=== PATIENT | male | born 1985 | race Caucasian/White ===

== ENCOUNTER 2016-11-16 19:06 | Emergency (ER) | payer MEDICAID ==
[~2016-11-16] VITALS: Ht 182.9 cm; Wt 91.5 kg
[~2016-11-16 19:06] MED LIST: HYDR-906 PO; IBUP-1542 PO
[2016-11-16 19:40] VITALS: Ht 182.9 cm; Wt 91.5 kg
[2016-11-16] MEDS ORDERED: CIPR500T4 PO (19:52)
--- NOTE | 2016-11-16 19:57 | ERD ---
ER Documentation Chief Complaint Date/Time DATE: 11/16/16 TIME: 19:53 Chief Complaint Exposure to Meningitis HPI 30-year-old male patient with no significant past medical history presents to the ED being exposed to a patient that was diagnosed with meningitis today here in the ER. Reports that he is a family friend of the patient. The patient is being admitted for meningitis. Patient is asymptomatic and is here for 1 dose of ciprofloxacin for prophylactic exposure. Denies any fever, chills, headache , neck stiffness, neck pain, seizures, nausea, vomiting, chest pain, shortness of breath. ROS All systems reviewed and are negative except as per history of present illness. Medications Home Meds Active Scripts Ciprofloxacin Hcl* (Ciprofloxacin Hcl*) 500 Mg Tablet, 500 MG PO ONCE Y for now for 1 Day, #1 TAB Prov:MAIN HENRY PA-C 11/16/16 Hydrocodone/Acetaminophen (Charl[place] 5-325 Tablet) 1 Each Tablet, 1 TAB PO QHS Y for PAIN for 10 Days, #10 TAB 0 Refills Prov:YONG PEDROZA PA-C 04/25/16 Ibuprofen* (Motrin*) 600 Mg Tab, 600 MG PO Q8 for 10 Days, #30 TAB 0 Refills Prov:YONG PEDROZA PA-C 04/25/16 Allergies Allergies: Coded Allergies: No Known Allergy (Unverified , 04/25/16) PMhx/Soc History of Surgery: No Anesthesia Reaction: No Hx Neurological Disorder: No Hx Respiratory Disorders: No Hx Cardiac Disorders: No Hx Psychiatric Problems: No Hx Miscellaneous Medical Probl: No Hx Alcohol Use: No Hx Substance Use: No Hx Tobacco Use: No Physical Exam Vitals Vital Signs Date Time Temp Pulse Resp B/P Pulse Ox O2 Delivery O2 Flow Rate FiO2 11/16/16 19:40 98.0 96 18 132/79 97 Physical Exam Const: [id number], well-nourished. In no acute distress. Head: Atraumatic, normocephalic Eyes: Normal Conjunctiva without injection. No purulent discharge. PERRLA. EOMI ENT: Normal external ear. Ear canal without erythema. Tympanic membrane pearly gr without effusion or bulging. Nasal canal clear with normal turbinates. Moist oropharynx without tonsillar exudates. Non-erythematous pharynx. Uvula midline. No drooling. No trismus. Neck: No cervical midline tenderness. Full range of motion. No meningismus. No cervical lymphadenopathy. No JVD. Resp: Clear to auscultation bilaterally. No wheezing, rhonchi, rales, or crackles. No accessory muscle use. No retractions. Cardio: Regular rate and rhythm. No murmurs, rubs or gallops. Skin: Normal skin turgor. No petechiae or rashes Ext: No cyanosis, or edema. Distal pulses intact bilaterally. Neur: Awake and alert. Normal gait. Normal coordination. Cranial Nerves II- VII intact. Normal finger to nose. Muscle strength 5/5. Sensation intact. Psych: Normal Mood and Affect Procedures/MDM This is a 30-year-old male patient with no significant past medical history presents to the ED and is here for a prescription for Ciprofloxacin for prophylaxis treatment to meningitis. Patient is afebrile and nontoxic- appearing. Patient has normal vital signs. Patient is asymptomatic. Patient will be given a prescription for ciprofloxacin 500 mg for outpatient management. Low suspicion for acute meningitis, intracranial, acute neurological deficits, pneumonia, acute atypical LA, meningococcemia or other emergent conditions. Discharge medications: Ciprofloxacin Follow up with primary care physician in 1-2 days. Instructed patient to return to the ED sooner for any worsening symptoms. Patient's questions were answered. Patient understood and agreed with discharge plan. Patient discharged stable. Departure Diagnosis: Primary Impression: Exposure to meningitis Condition: Stable Patient Instructions: Meningitis Referrals: [facility] YOU HAVE RECEIVED A MEDICAL SCREENING EXAM AND THE RESULTS INDICATE THAT YOU DO NOT HAVE A CONDITION THAT REQUIRES URGENT TREATMENT IN THE EMERGENCY DEPARTMENT. FURTHER EVALUATION AND TREATMENT OF YOUR CONDITION CAN WAIT UNTIL YOU ARE SEEN IN YOUR DOCTORS OFFICE WITHIN THE NEXT 1-2 DAYS. IT IS YOUR RESPONSIBILITY TO MAKE AN APPOINTMENT FOR FOLOW-UP CARE. IF YOU HAVE A PRIMARY DOCTOR --you should call your primary doctor and schedule an appointment IF YOU DO NOT HAVE A PRIMARY DOCTOR YOU CAN CALL OUR PHYSICIAN REFERRAL HOTLINE AT IF YOU CAN NOT AFFORD TO SEE A PHYSICIAN YOU CAN CHOSE FROM THE FOLLOWING [facility] [address] [facility] [address] [facility] [address] [facility] [address] [facility] [address] [facility]. [facility] [address] [facility]. [facility] YOU HAVE RECEIVED A MEDICAL SCREENING EXAM AND THE RESULTS INDICATE THAT YOU DO NOT HAVE A CONDITION THAT REQUIRES URGENT TREATMENT IN THE EMERGENCY DEPARTMENT. FURTHER EVALUATION AND TREATMENT OF YOUR CONDITION CAN WAIT UNTIL YOU ARE SEEN IN YOUR DOCTORS OFFICE WITHIN THE NEXT 1-2 DAYS. IT IS YOUR RESPONSIBILITY TO MAKE AN APPOINTMENT FOR FOLOW-UP CARE. IF YOU HAVE A PRIMARY DOCTOR --you should call your primary doctor and schedule and appointment IF YOU DO NOT HAVE A PRIMARY DOCTOR YOU CAN CALL OUR PHYSICIAN REFERRAL HOTLINE AT . IF YOU CAN NOT AFFORD TO SEE A PHYSICIAN YOU CAN CHOSE FROM THE FOLLOWING [facility] INSTITUTIONS: [facility] [id number] [place] [address] [facility] [address] [place], [place] [id number] [place] [address] [address] [place] [address] [facility] Additional Instructions: Call your primary care doctor TOMORROW for an appointment during the next 2-3 days.See the doctor sooner or return here if your condition worsens before your appointment time. MAIN HENRY PA-C Nov 16, 2016 19:57
== END 2016-11-16 19:52 | disposition home or self-care (01) ==
LOC: E/R 19:06
DX: Z20.811 Contact with and (suspected) exposure to meningococcus (principal)
CPT/HCPCS: 99283